=== PATIENT | female | born 2000 | race African-American/Black ===

== ENCOUNTER 2020-01-15 01:16 | Outpatient (CLI) | payer MEDICAID ==
[2020-01-15 01:49] LABS: APPEARANCE,URINE SLIGHTLY-CLOUDY; BILIRUBIN,URINE NEGATIVE (NEGATIVE); COLOR,URINE YELLOW; GLUCOSE, URINE NEGATIVE (NEGATIVE); KETONES,URINE NEGATIVE (NEGATIVE); LEUKOCYTE ESTERASE,URINE LARGE (NEGATIVE); NITRITE,URINE NEGATIVE (NEGATIVE); PROTEIN,URINE NEGATIVE (NEGATIVE); URINE SPECIFIC GRAVITY 1.009
[2020-01-15 02:03] LABS: URINE AMPHETAMINES SCREEN NEGATIVE; URINE BARBITURATES SCREEN NEGATIVE; URINE BENZODIAZEPINES SCREEN NEGATIVE; URINE COCAINE SCREEN NEGATIVE; URINE MARIJUANA (THC) SCREEN NEGATIVE; URINE METHADONE SCREEN NEGATIVE; URINE PHENCYCLIDINE SCREEN NEGATIVE
[2020-01-15] MEDS ORDERED: RINGERS SOLUTION,LACTATED 1,000 ML IV ONE (03:25)
--- NOTE | 2020-01-15 05:20 | Non Stress Test Report ---
Non Stress Test Datetime Report Generated by CPN: 01/15/2020 05:20 DEMOGRAPHIC EGA NST: 39.4 INDICATION Indication for Study (NST) Other: gestational age > 32 weeks VITAL SIGNS Temperature - NST: 98.4 Pulse - NST: 68 RESP - NST: 16 NBPSYS NST: 134 NBPDIA NST: 81 MONITORING Monitor Explained: Monitor Explained; Test Explained; Patient Verbalized Understanding Time on Monitor: 01/15/2020 01:39 Time off Monitor: 01/15/2020 04:35 NST Duration: 176 NST INTERVENTIONS NST Interventions: PO Hydration; Reposition Patient Physician Notified NST: dr reynolds BABY A: [id number] BABY A Movement : Present Contraction Frequency : irergular FHR Baseline : wandering Accelerations : Prolonged Decelerations : Variable Variability : Moderate 6-25bpm NST Review: Meets Criteria for Reactive NST NST Review and Verified By : Apollo Cummings RN NST Results: Reactive NST REPORT Report Trigger: Send Report
== END 2020-01-15 04:56 | disposition home or self-care (01) ==
LOC: LC 01:16
PROVIDERS: ATTEND Obstetrics & Gynecology
DX: O36.8330 Maternal care for abnormalities of the fetal heart rate or rhythm, third trimester, not applicable or unspecified (principal); O47.1 False labor at or after 37 completed weeks of gestation; Z3A.39 39 weeks gestation of pregnancy
CPT/HCPCS: 59025; 80307; 81005; 84112

== ENCOUNTER 2020-01-18 00:17 | Outpatient (CLI) | payer MEDICAID ==
[2020-01-18 00:59] LABS: APPEARANCE,URINE SLIGHTLY-CLOUDY; BILIRUBIN,URINE NEGATIVE (NEGATIVE); COLOR,URINE STRAW; GLUCOSE, URINE NEGATIVE (NEGATIVE); KETONES,URINE NEGATIVE (NEGATIVE); LEUKOCYTE ESTERASE,URINE MODERATE (NEGATIVE); NITRITE,URINE NEGATIVE (NEGATIVE); PROTEIN,URINE NEGATIVE (NEGATIVE); URINE SPECIFIC GRAVITY 1.002; UROBILINOGEN,URINE NEGATIVE mg/dL (<2.0)
[2020-01-18 01:14] LABS: URINE AMPHETAMINES SCREEN NEGATIVE; URINE BARBITURATES SCREEN NEGATIVE; URINE BENZODIAZEPINES SCREEN NEGATIVE; URINE COCAINE SCREEN NEGATIVE; URINE MARIJUANA (THC) SCREEN NEGATIVE; URINE METHADONE SCREEN NEGATIVE; URINE PHENCYCLIDINE SCREEN NEGATIVE
--- NOTE | 2020-01-18 01:22 | Non Stress Test Report ---
Non Stress Test Datetime Report Generated by CPN: 01/18/2020 01:22 DEMOGRAPHIC EGA NST: 40.0 INDICATION Indication for Study (NST) Other: gestational age > 32 weeks MONITORING Monitor Explained: Monitor Explained; Test Explained; Patient Verbalized Understanding Time on Monitor: 01/18/2020 00:42 Time off Monitor: 01/18/2020 01:21 NST Duration: 39 NST INTERVENTIONS NST Interventions: PO Hydration; Reposition Patient Physician Notified NST: Dr Hansen BABY A: [id number] BABY A Movement : Present Contraction Frequency : 3-6 FHR Baseline : 130 Accelerations : 15X15 Decelerations : None Variability : Moderate 6-25bpm NST Review: Meets Criteria for Reactive NST NST Review and Verified By : Maite Bellavance RN NST Results: Reactive NST REPORT Report Trigger: Send Report
== END 2020-01-18 01:51 | disposition home or self-care (01) ==
LOC: LC 00:17
PROVIDERS: ATTEND Obstetrics & Gynecology Gynecology
DX: O47.1 False labor at or after 37 completed weeks of gestation (principal)
CPT/HCPCS: 59025; 80307; 81005; 84112